=== PATIENT | female | born 1950 | race Caucasian/White ===

== ENCOUNTER 2022-02-15 19:26 | Emergency (ER) | payer MEDICARE, MEDICAID ==
[~2022-02-15] VITALS: Ht 170.2 cm; Wt 75.5 kg
[~2022-02-15 19:26] MED LIST: ASPI-1265 PO; ATOR40TA PO; INSU100V9 SQ; LISI40TA13 PO; LOP25T PO; TICA90TA2 PO
[2022-02-15 19:52] LABS: BASOPHILS % (AUTO) 0.3 % (0-1); EOSINOPHILS # (AUTO) 0.1 X10'3 (0-0.9); EOSINOPHILS % (AUTO) 1.5 % (0-6); HEMATOCRIT 35.3 % (35.0-45.0); HEMOGLOBIN 12.1 g/dl (12.0-16.0); LYMPHOCYTES # (AUTO) 2.1 X10'3 (1.1-4.8); LYMPHOCYTES % (AUTO) 31.4 % (21-51); MEAN CORPUSCULAR HEMOGLOBIN 30.2 PG (27.0-31.0); MEAN CORPUSCULAR HGB CONC 34.2 g/dL (33.0-36.5); MEAN CORPUSCULAR VOLUME 88.2 FL (78-98); MEAN PLATELET VOLUME 7.9 FL (7.4-10.4); MONOCYTES # (AUTO) 0.5 X10'3 (0-0.9); MONOCYTES % (AUTO) 7.6 % (2-12); NEUTROPHILS % (AUTO) 59.2 % (42-75); PLATELET COUNT 243 X10'3 (140-440); RED CELL DISTRIBUTION WIDTH 13.2 % (11.5-14.5); WHITE BLOOD COUNT 6.8 X10'3 (4.5-11.0)
[2022-02-15 20:04] LABS: ALANINE AMINOTRANSFERASE 43 U/L (12-78); ALBUMIN 2.8 G/DL (3.4-5.0); ALBUMIN/GLOBULIN RATIO 0.7 (1.1-1.5); ALKALINE PHOSPHATASE 167 IU/L (46-116); ANION GAP 7 (8-16); ASPARTATE AMINO TRANSFERASE 27 U/L (10-37); BILIRUBIN,TOTAL 0.4 MG/DL (0.1-1.0); BLOOD UREA NITROGEN 25 MG/DL (7-18); BUN/CREATININE RATIO 27.5 (6.6-38.0); CHLORIDE 104 MMOL/L (99-107); CREATININE 0.91 MG/DL (0.40-0.90); GLUCOSE 200 MG/DL (70-104); POTASSIUM 3.8 MMOL/L (3.5-5.1); SODIUM 136 MMOL/L (135-145); TOTAL CARBON DIOXIDE 24.6 MMOL/L (24-32); TOTAL PROTEIN 6.6 G/DL (6.4-8.2); eGFR 61 ML/MIN
[2022-02-16] MEDS ORDERED: furosemide 10 MG/1 ML 10ml inj IV ONE (04:55)
[2022-02-16 09:36] VITALS: BP 147/91
== END 2022-02-16 10:02 | disposition home or self-care (01) ==
LOC: ER 19:27
DX: R06.00 Dyspnea, unspecified (principal); I10 Essential (primary) hypertension; I11.9 Hypertensive heart disease without heart failure; E11.9 Type 2 diabetes mellitus without complications; Z79.899 Other long term (current) drug therapy; Z79.82 Long term (current) use of aspirin
CPT/HCPCS: 36415; 71045; 80053; 82948; 83880; 84484; 85025; 93005; 96374; 99285; J1940

== ENCOUNTER 2022-03-03 19:28 | Emergency (ER) | payer MEDICARE, MEDICAID ==
[~2022-03-03] VITALS: Ht 170.2 cm; Wt 75.0 kg
[~2022-03-03 19:28] MED LIST changes: -ASPI-1265 PO
[2022-03-03 23:36] LABS: BASOPHILS % (AUTO) 0.5 % (0-1); EOSINOPHILS # (AUTO) 0.1 X10'3 (0-0.9); EOSINOPHILS % (AUTO) 1.6 % (0-6); HEMATOCRIT 37.3 % (35.0-45.0); HEMOGLOBIN 12.5 g/dl (12.0-16.0); LYMPHOCYTES # (AUTO) 2.5 X10'3 (1.1-4.8); LYMPHOCYTES % (AUTO) 38.6 % (21-51); MEAN CORPUSCULAR HEMOGLOBIN 29.4 PG (27.0-31.0); MEAN CORPUSCULAR HGB CONC 33.4 g/dL (33.0-36.5); MEAN PLATELET VOLUME 8.5 FL (7.4-10.4); MONOCYTES # (AUTO) 0.4 X10'3 (0-0.9); MONOCYTES % (AUTO) 6.5 % (2-12); NEUTROPHILS # (AUTO) 3.5 X10'3 (1.8-7.7); NEUTROPHILS % (AUTO) 52.8 % (42-75); PLATELET COUNT 245 X10'3 (140-440); RED BLOOD COUNT 4.24 X10'6 (4.20-5.60); RED CELL DISTRIBUTION WIDTH 13.7 % (11.5-14.5); WHITE BLOOD COUNT 6.6 X10'3 (4.5-11.0)
[2022-03-03 23:49] LABS: ALANINE AMINOTRANSFERASE 36 U/L (12-78); ALBUMIN 3.1 G/DL (3.4-5.0); ALBUMIN/GLOBULIN RATIO 0.8 (1.1-1.5); ALKALINE PHOSPHATASE 133 IU/L (46-116); ANION GAP 8 (8-16); ASPARTATE AMINO TRANSFERASE 21 U/L (10-37); BILIRUBIN,TOTAL 0.4 MG/DL (0.1-1.0); BLOOD UREA NITROGEN 28 MG/DL (7-18); BUN/CREATININE RATIO 37.3 (6.6-38.0); CALCIUM 9.4 MG/DL (8.5-10.1); CHLORIDE 104 MMOL/L (99-107); CREATININE 0.75 MG/DL (0.40-0.90); GLUCOSE 99 MG/DL (70-104); POTASSIUM 3.2 MMOL/L (3.5-5.1); SODIUM 138 MMOL/L (135-145); TOTAL CARBON DIOXIDE 26.2 MMOL/L (24-32); eGFR 76 ML/MIN
[2022-03-04] MEDS ORDERED: furosemide 20MG tablet PO ONE (02:50)
[2022-03-04] MEDS ORDERED: POTASSIUM BICARB 20meq eff tab 20 MEQ TABLET.EFF PO SCH (02:50)
[2022-03-04] MEDS ORDERED: metoprolol tartrate 50mg tablet PO ONE (02:50)
[2022-03-04] MEDS ORDERED: FURO-150 PO ×2 (03:06→04:02)
[2022-03-04] MEDS ORDERED: POTA-84 PO ×2 (03:06→04:02)
[2022-03-04 03:35] VITALS: BP 186/95
--- NOTE | 2022-03-04 03:42 | NUR ---
pt refused c19 and flu swab. dr putnam made aware.
== END 2022-03-04 03:57 | disposition home or self-care (01) ==
LOC: ER 19:30
DX: R06.02 Shortness of breath (principal); R09.89 Other specified symptoms and signs involving the circulatory and respiratory systems; I25.10 Atherosclerotic heart disease of native coronary artery without angina pectoris; I10 Essential (primary) hypertension; I25.2 Old myocardial infarction; E11.9 Type 2 diabetes mellitus without complications; Z98.890 Other specified postprocedural states; Z60.2 Problems related to living alone; Z79.899 Other long term (current) drug therapy
CPT/HCPCS: 36415; 71045; 80053; 83880; 84145; 84484; 85025; 93005; 99285

== ENCOUNTER 2023-05-03 04:26 | Emergency (ER) | payer MEDICARE, MEDICAID ==
[~2023-05-03] VITALS: Ht 165.1 cm; Wt 90.9 kg
[~2023-05-03 04:26] MED LIST changes: +ASPI-1397 PO; -ATOR40TA PO; +FURO40TA4 PO; -LISI40TA13 PO; -LOP25T PO; +METO75TA PO; +POTA-188 PO; +SACU1TAB7 PO; +ZOLP10TA PO
[2023-05-03] MEDS: HYDROcodone/acetaminophen 5mg/325mg tablet PO ONE (05:15)
[2023-05-03 05:19] LABS: BASOPHILS % (AUTO) 0.4 % (0-1); EOSINOPHILS # (AUTO) 0.1 X10'3 (0-0.9); EOSINOPHILS % (AUTO) 1.6 % (0-6); HEMATOCRIT 38.6 % (35.0-45.0); LYMPHOCYTES # (AUTO) 1.8 X10'3 (1.1-4.8); LYMPHOCYTES % (AUTO) 26.4 % (21-51); MEAN CORPUSCULAR HEMOGLOBIN 29.7 PG (27.0-31.0); MEAN CORPUSCULAR HGB CONC 33.6 g/dL (33.0-36.5); MEAN CORPUSCULAR VOLUME 88.4 FL (78-98); MEAN PLATELET VOLUME 9.1 FL (7.4-10.4); MONOCYTES # (AUTO) 0.6 X10'3 (0-0.9); MONOCYTES % (AUTO) 8.5 % (2-12); NEUTROPHILS # (AUTO) 4.3 X10'3 (1.8-7.7); NEUTROPHILS % (AUTO) 63.1 % (42-75); PLATELET COUNT 179 X10'3 (140-440); RED BLOOD COUNT 4.36 X10'6 (4.20-5.60); RED CELL DISTRIBUTION WIDTH 13.2 % (11.5-14.5); WHITE BLOOD COUNT 6.8 X10'3 (4.5-11.0)
[2023-05-03 05:31] LABS: ALBUMIN 1.9 G/DL (3.4-5.0); ANION GAP 10 (8-16); BLOOD UREA NITROGEN 38 MG/DL (7-18); BUN/CREATININE RATIO 29.9 (10.0-20.0); CALCIUM 8.3 MG/DL (8.5-10.1); CHLORIDE 103 MMOL/L (99-107); CREATININE 1.27 MG/DL (0.40-0.90); GLUCOSE 366 MG/DL (70-104); POTASSIUM 3.8 MMOL/L (3.5-5.1); SODIUM 137 MMOL/L (135-145); TOTAL CARBON DIOXIDE 23.7 MMOL/L (24-32); eCRCL 36 ML/MIN; eGFR 41 ML/MIN
[2023-05-03] MEDS ORDERED: HYDR-3965 PO (05:58)
[2023-05-03 08:25] VITALS: BP 164/84; PULSE 64; RESP 14; TEMP 98.4; O2SAT 97
== END 2023-05-03 08:10 | disposition home or self-care (01) ==
LOC: ER 04:26
DX: R51.9 Headache, unspecified (principal); E86.0 Dehydration; I10 Essential (primary) hypertension; E11.9 Type 2 diabetes mellitus without complications; Z79.82 Long term (current) use of aspirin; Z79.84 Long term (current) use of oral hypoglycemic drugs; Z79.899 Other long term (current) drug therapy
CPT/HCPCS: 36415; 70450; 80048; 85025; 99284

== ENCOUNTER 2023-06-18 17:42 | Inpatient (IN) | payer MEDICARE, MEDICAID ==
[~2023-06-18] VITALS: Ht 165.1 cm; Wt 106.4 kg
[2023-06-18] MEDS: hydrALAZINE 20mg/ml inj. IV ONE ×2 (19:08→19:58)
[2023-06-18 19:19] LABS: BASOPHILS # (AUTO) 0.1 X10'3 (0-0.2); BASOPHILS % (AUTO) 0.7 % (0-1); EOSINOPHILS # (AUTO) 0.1 X10'3 (0-0.9); EOSINOPHILS % (AUTO) 1.2 % (0-6); HEMATOCRIT 42.7 % (35.0-45.0); HEMOGLOBIN 14.3 g/dl (12.0-16.0); LYMPHOCYTES # (AUTO) 2.4 X10'3 (1.1-4.8); LYMPHOCYTES % (AUTO) 31.4 % (21-51); MEAN CORPUSCULAR HEMOGLOBIN 29.8 PG (27.0-31.0); MEAN CORPUSCULAR HGB CONC 33.4 g/dL (33.0-36.5); MEAN CORPUSCULAR VOLUME 89.2 FL (78-98); MEAN PLATELET VOLUME 8.4 FL (7.4-10.4); MONOCYTES # (AUTO) 0.5 X10'3 (0-0.9); MONOCYTES % (AUTO) 6.1 % (2-12); NEUTROPHILS # (AUTO) 4.5 X10'3 (1.8-7.7); NEUTROPHILS % (AUTO) 60.6 % (42-75); PLATELET COUNT 244 X10'3 (140-440); RED BLOOD COUNT 4.79 X10'6 (4.20-5.60); RED CELL DISTRIBUTION WIDTH 14.1 % (11.5-14.5); WHITE BLOOD COUNT 7.5 X10'3 (4.5-11.0)
[2023-06-18] MEDS ORDERED: SEMA1PEN3 SUBCUT (19:23)
[2023-06-18 19:25] LABS: ALANINE AMINOTRANSFERASE 23 U/L (12-78); ALBUMIN 1.8 G/DL (3.4-5.0); ALBUMIN/GLOBULIN RATIO 0.4 (1.1-1.5); ALKALINE PHOSPHATASE 119 IU/L (46-116); ANION GAP 7 (8-16); ASPARTATE AMINO TRANSFERASE 23 U/L (10-37); BILIRUBIN,TOTAL 0.3 MG/DL (0.1-1.0); BLOOD UREA NITROGEN 29 MG/DL (7-18); BUN/CREATININE RATIO 27.1 (10.0-20.0); CALCIUM 8.8 MG/DL (8.5-10.1); CHLORIDE 106 MMOL/L (99-107); CREATININE 1.07 MG/DL (0.40-0.90); GLUCOSE 196 MG/DL (70-104); POTASSIUM 3.2 MMOL/L (3.5-5.1); SODIUM 141 MMOL/L (135-145); TOTAL CARBON DIOXIDE 27.7 MMOL/L (24-32); TOTAL PROTEIN 6.3 G/DL (6.4-8.2); eCRCL 43 ML/MIN; eGFR 50 ML/MIN
[2023-06-18] MEDS ORDERED: PREG50CA PO (19:26)
[2023-06-18] MEDS ORDERED: SUMA100T16 PO (19:26)
[2023-06-18 19:32] LABS: PRO BRAIN NATRIURETIC PEPTIDE 2051 PG/ML (0-125)
[2023-06-18] MEDS ORDERED: POTASSIUM BICARB 20meq eff tab 20 MEQ TABLET.EFF PO SCH (19:55)
[2023-06-18] MEDS: furosemide 10 MG/1 ML 10ml inj IV ONE (19:57)
[2023-06-18] MEDS: nitroGLYCERIN 1gm ointment UD TP ONE (19:58)
[2023-06-18] MEDS: aspirin 325mg tablet PO ONE (19:58)
[2023-06-18] MEDS: POTASSIUM BICARB 20meq eff tab 20 MEQ TABLET.EFF PO ONE (19:58)
[2023-06-18] MEDS ORDERED: ketorolac trometh. 30mg/ml inj. IV ONE (22:30)
[2023-06-18] MEDS: proCHLORperazine 10 MG/2 ml inj IV ONE (22:57)
[2023-06-18] MEDS: ketorolac tromethamine 15mg/ml inj. IV ONE (22:57)
[2023-06-18] MEDS: diphenhydrAMINE 50 mg/ml inj IV ONE (22:57)
[2023-06-19] VITALS (7 sets, daily range): BP systolic 129–161; BP diastolic 51–85; PULSE 65–98; RESP 12–22; TEMP 97.7–98.2; O2SAT 93–97
[2023-06-19] MEDS ORDERED: mag hydrox/Alum hydrox/simeth 30ml oral suspension PO PRN
[2023-06-19] MEDS ORDERED: magnesium Cl slow-release 64mg tablet PO PRN
[2023-06-19] MEDS ORDERED: potassium Cl 40MEQ/1/2NS 520ml 520 ML IV PRN
[2023-06-19] MEDS ORDERED: ondansetron/PF 4mg/2ml inj IV PRN
[2023-06-19] MEDS ORDERED: acetaminophen 325mg tablet PO PRN
[2023-06-19] MEDS ORDERED: magnesium hydroxide 30ml (MOM) UD suspension PO PRN
[2023-06-19] MEDS ORDERED: potassium Cl 20 mEq SR tablet PO PRN
[2023-06-19] MEDS ORDERED: magnesium 4gm in 100ml NS 100 ML IV PRN
[2023-06-19] MEDS ORDERED: magnesium 2GM in 50ml NS 50 ML IV PRN
[2023-06-19] MEDS ORDERED: hydrALAZINE 20mg/ml inj. IV SCH (02:00)
[2023-06-19] MEDS ORDERED: dextrose 50%-water 50ml dispensing syringe IV PRN ×2 (02:15)
[2023-06-19] MEDS ORDERED: DEXTROSE 15 GM of carb/4 tabs (each vial/BOTTLE has 4 tablets) PO PRN ×2 (02:15)
[2023-06-19] MEDS ORDERED: hydrALAZINE 20mg/ml inj. IV PRN (02:15)
[2023-06-19] MEDS ORDERED: glucagon, human recombinant 1mg kit SUBCUT PRN (02:15)
[2023-06-19] MEDS: K and/or MAG REPLACEMENT MC SCH (08:00)
[2023-06-19 08:36] LABS: BASOPHILS # (AUTO) 0.1 X10'3 (0-0.2); BASOPHILS % (AUTO) 0.7 % (0-1); EOSINOPHILS % (AUTO) 0.5 % (0-6); HEMATOCRIT 38.1 % (35.0-45.0); LYMPHOCYTES # (AUTO) 2.2 X10'3 (1.1-4.8); MEAN CORPUSCULAR HEMOGLOBIN 30.1 PG (27.0-31.0); MEAN CORPUSCULAR HGB CONC 34.2 g/dL (33.0-36.5); MEAN CORPUSCULAR VOLUME 87.9 FL (78-98); MEAN PLATELET VOLUME 8.6 FL (7.4-10.4); MONOCYTES # (AUTO) 0.5 X10'3 (0-0.9); MONOCYTES % (AUTO) 7.1 % (2-12); NEUTROPHILS # (AUTO) 4.1 X10'3 (1.8-7.7); NEUTROPHILS % (AUTO) 59.7 % (42-75); PLATELET COUNT 229 X10'3 (140-440); RED BLOOD COUNT 4.34 X10'6 (4.20-5.60); RED CELL DISTRIBUTION WIDTH 13.8 % (11.5-14.5); WHITE BLOOD COUNT 6.8 X10'3 (4.5-11.0)
[2023-06-19] MEDS: docusate sod 100mg capsule PO SCH (08:52)
[2023-06-19] MEDS: furosemide 10 MG/1 ML 10ml inj IV SCH (08:55)
[2023-06-19] MEDS: potassium chloride 10mEq ER tablet PO SCH (08:57)
[2023-06-19] MEDS: aspirin 81mg, enteric-coated 1 TAB TABLET.DR PO SCH (08:57)
[2023-06-19] MEDS: ticagrelor 90mg tablet PO SCH (08:57)
[2023-06-19] MEDS: metoprolol tartrate 25mg tablet PO SCH (08:57)
[2023-06-19] MEDS: heparin, porcine 5000 units/ml vial SQ SCH (08:58)
[2023-06-19] MEDS: spironolactone 25 MG tablet PO SCH (09:07)
[2023-06-19] MEDS: sacubitril/valsartan 49mg-51mg tablet PO SCH (09:08)
[2023-06-19 09:18] LABS: ALANINE AMINOTRANSFERASE 18 U/L (12-78); ALBUMIN 1.5 G/DL (3.4-5.0); ALBUMIN/GLOBULIN RATIO 0.4 (1.1-1.5); ALKALINE PHOSPHATASE 98 IU/L (46-116); ANION GAP 9 (8-16); ASPARTATE AMINO TRANSFERASE 20 U/L (10-37); BILIRUBIN,TOTAL 0.5 MG/DL (0.1-1.0); BLOOD UREA NITROGEN 29 MG/DL (7-18); BUN/CREATININE RATIO 26.6 (10.0-20.0); CALCIUM 8.2 MG/DL (8.5-10.1); CHLORIDE 106 MMOL/L (99-107); CHOL/HDL RATIO 3.2 (0.00-4.99); CHOLESTEROL 209 MG/DL (0-200); CREATININE 1.09 MG/DL (0.40-0.90); FREE T4 (FREE THYROXINE) 0.99 NG/DL (0.73-1.40); GLUCOSE 271 MG/DL (70-104); HDL CHOLESTEROL 65 MG/DL (35-60); LDL CHOLESTEROL 102 MG/DL (50-100); MAGNESIUM 1.6 MG/DL (1.5-2.4); PHOSPHORUS 4.3 MG/DL (2.3-4.5); POTASSIUM 3.3 MMOL/L (3.5-5.1); SODIUM 141 MMOL/L (135-145); THYROID STIMULATING HORMONE 3.85 ulU/ml (0.34-4.50); TOTAL CARBON DIOXIDE 25.6 MMOL/L (24-32); TOTAL PROTEIN 5.1 G/DL (6.4-8.2); TRIGLYCERIDES 127 MG/DL (20-135); eCRCL 42 ML/MIN; eGFR 49 ML/MIN
[2023-06-19] MEDS: pregabalin 25mg capsule PO SCH (09:18)
[2023-06-19 09:33] LABS: HEMOGLOBIN A1C > 12.0 % (4.5-6.2)
[2023-06-19] MEDS: potassium Cl 20 mEq SR tablet PO PRN (09:55)
[2023-06-19] MEDS: insulin Lispro (HumaLOG) vial - multi-dose SQ SCH (14:19)
[2023-06-19] MEDS: insulin glargine (Lantus) pen - multi-dose SQ SCH (21:41)
[2023-06-19] MEDS: apixaban 5mg tablet PO SCH (21:55)
[2023-06-19] MEDS: zolpidem 5mg tablet PO SCH (21:56)
[2023-06-20 02:00] VITALS: BP 145/73; PULSE 62; RESP 18; TEMP 97.3; O2SAT 96
[2023-06-20 06:00] VITALS: BP 182/77; PULSE 58; RESP 19; TEMP 98.3; O2SAT 97
[2023-06-20] MEDS: SUMAtriptan 25 MG tablet PO PRN (08:26)
[2023-06-20 08:35] LABS: BASOPHILS # (AUTO) 0.1 X10'3 (0-0.2); BASOPHILS % (AUTO) 0.8 % (0-1); EOSINOPHILS # (AUTO) 0.1 X10'3 (0-0.9); EOSINOPHILS % (AUTO) 1.9 % (0-6); HEMATOCRIT 37.9 % (35.0-45.0); HEMOGLOBIN 12.9 g/dl (12.0-16.0); LYMPHOCYTES # (AUTO) 2.9 X10'3 (1.1-4.8); LYMPHOCYTES % (AUTO) 40.8 % (21-51); MEAN CORPUSCULAR HEMOGLOBIN 30.2 PG (27.0-31.0); MEAN CORPUSCULAR VOLUME 88.8 FL (78-98); MEAN PLATELET VOLUME 8.4 FL (7.4-10.4); MONOCYTES # (AUTO) 0.5 X10'3 (0-0.9); NEUTROPHILS # (AUTO) 3.5 X10'3 (1.8-7.7); NEUTROPHILS % (AUTO) 49.5 % (42-75); PLATELET COUNT 227 X10'3 (140-440); RED BLOOD COUNT 4.27 X10'6 (4.20-5.60); WHITE BLOOD COUNT 7.1 X10'3 (4.5-11.0)
[2023-06-20 09:07] LABS: ALANINE AMINOTRANSFERASE 22 U/L (12-78); ALBUMIN 1.5 G/DL (3.4-5.0); ALBUMIN/GLOBULIN RATIO 0.4 (1.1-1.5); ALKALINE PHOSPHATASE 96 IU/L (46-116); ANION GAP 8 (8-16); ASPARTATE AMINO TRANSFERASE 26 U/L (10-37); BILIRUBIN,TOTAL 0.6 MG/DL (0.1-1.0); BLOOD UREA NITROGEN 32 MG/DL (7-18); BUN/CREATININE RATIO 24.4 (10.0-20.0); CALCIUM 8.1 MG/DL (8.5-10.1); CHLORIDE 106 MMOL/L (99-107); CREATININE 1.31 MG/DL (0.40-0.90); GLUCOSE 167 MG/DL (70-104); MAGNESIUM 1.7 MG/DL (1.5-2.4); PHOSPHORUS 3.6 MG/DL (2.3-4.5); POTASSIUM 3.6 MMOL/L (3.5-5.1); SODIUM 140 MMOL/L (135-145); TOTAL CARBON DIOXIDE 26.3 MMOL/L (24-32); TOTAL PROTEIN 5.5 G/DL (6.4-8.2); eCRCL 35 ML/MIN; eGFR 40 ML/MIN
[2023-06-20 11:00] VITALS: BP 162/68; PULSE 60; RESP 15; TEMP 97.9; O2SAT 95
[2023-06-20 15:00] VITALS: BP 127/83; PULSE 62; RESP 15; TEMP 97.6; O2SAT 94
[2023-06-20 18:00] VITALS: BP 132/81; PULSE 62; RESP 18; TEMP 97.9; O2SAT 95
[2023-06-20 22:00] VITALS: BP 145/62; PULSE 63; RESP 12; TEMP 97.7; O2SAT 97
[2023-06-21 02:00] VITALS: BP 162/75; PULSE 56; RESP 14; TEMP 97.6; O2SAT 94
[2023-06-21 07:41] LABS: BASOPHILS % (AUTO) 0.6 % (0-1); EOSINOPHILS # (AUTO) 0.2 X10'3 (0-0.9); EOSINOPHILS % (AUTO) 2.7 % (0-6); HEMATOCRIT 37.1 % (35.0-45.0); HEMOGLOBIN 12.6 g/dl (12.0-16.0); LYMPHOCYTES # (AUTO) 3.2 X10'3 (1.1-4.8); LYMPHOCYTES % (AUTO) 48.9 % (21-51); MEAN CORPUSCULAR HEMOGLOBIN 30.3 PG (27.0-31.0); MEAN CORPUSCULAR HGB CONC 34.1 g/dL (33.0-36.5); MEAN CORPUSCULAR VOLUME 88.7 FL (78-98); MEAN PLATELET VOLUME 8.7 FL (7.4-10.4); MONOCYTES # (AUTO) 0.5 X10'3 (0-0.9); MONOCYTES % (AUTO) 7.8 % (2-12); NEUTROPHILS # (AUTO) 2.6 X10'3 (1.8-7.7); PLATELET COUNT 225 X10'3 (140-440); RED BLOOD COUNT 4.18 X10'6 (4.20-5.60); RED CELL DISTRIBUTION WIDTH 13.9 % (11.5-14.5); WHITE BLOOD COUNT 6.5 X10'3 (4.5-11.0)
[2023-06-21 07:57] LABS: ALANINE AMINOTRANSFERASE 22 U/L (12-78); ALBUMIN 1.5 G/DL (3.4-5.0); ALBUMIN/GLOBULIN RATIO 0.4 (1.1-1.5); ALKALINE PHOSPHATASE 84 IU/L (46-116); ANION GAP 7 (8-16); ASPARTATE AMINO TRANSFERASE 23 U/L (10-37); BILIRUBIN,TOTAL 0.4 MG/DL (0.1-1.0); BLOOD UREA NITROGEN 39 MG/DL (7-18); BUN/CREATININE RATIO 28.1 (10.0-20.0); CALCIUM 8.2 MG/DL (8.5-10.1); CHLORIDE 106 MMOL/L (99-107); CREATININE 1.39 MG/DL (0.40-0.90); GLUCOSE 179 MG/DL (70-104); MAGNESIUM 1.9 MG/DL (1.5-2.4); PHOSPHORUS 4.4 MG/DL (2.3-4.5); POTASSIUM 3.8 MMOL/L (3.5-5.1); SODIUM 141 MMOL/L (135-145); TOTAL CARBON DIOXIDE 27.9 MMOL/L (24-32); TOTAL PROTEIN 5.2 G/DL (6.4-8.2); eCRCL 33 ML/MIN; eGFR 37 ML/MIN
[2023-06-21 08:50] LABS: ALBUMIN 1.7 G/DL (3.4-5.0); ANION GAP 8 (8-16); BLOOD UREA NITROGEN 39 MG/DL (7-18); BUN/CREATININE RATIO 28.7 (10.0-20.0); CALCIUM 8.6 MG/DL (8.5-10.1); CHLORIDE 105 MMOL/L (99-107); CREATININE 1.36 MG/DL (0.40-0.90); GLUCOSE 200 MG/DL (70-104); POTASSIUM 3.9 MMOL/L (3.5-5.1); SODIUM 141 MMOL/L (135-145); TOTAL CARBON DIOXIDE 28.1 MMOL/L (24-32); eCRCL 34 ML/MIN; eGFR 38 ML/MIN
[2023-06-21] MEDS ORDERED: FURO40TA4 PO (09:53)
[2023-06-21] MEDS ORDERED: SPIR25TA PO (09:53)
[2023-06-21] MEDS ORDERED: APIX5TAB3 PO (09:53)
[2023-06-21 10:59] VITALS: BP_SYST 112
== END 2023-06-21 14:13 | disposition home or self-care (01) | DRG 291 ==
LOC: ER 17:43 → ED HOLD 06-19 → EDBEDREQ 06-19 00:37 → PCU 3S 06-19 03:25
PROVIDERS: ADMIT Internal Medicine Critical Care Medicine; ATTEND Internal Medicine
DX: I11.0 Hypertensive heart disease with heart failure (principal); I50.33 Acute on chronic diastolic (congestive) heart failure; I16.1 Hypertensive emergency; N17.9 Acute kidney failure, unspecified; I48.0 Paroxysmal atrial fibrillation; I25.10 Atherosclerotic heart disease of native coronary artery without angina pectoris; Z60.2 Problems related to living alone; E78.5 Hyperlipidemia, unspecified; E11.65 Type 2 diabetes mellitus with hyperglycemia; E87.6 Hypokalemia; I49.3 Ventricular premature depolarization; I08.1 Rheumatic disorders of both mitral and tricuspid valves; Z79.82 Long term (current) use of aspirin; Z79.4 Long term (current) use of insulin; Z95.5 Presence of coronary angioplasty implant and graft; Z79.899 Other long term (current) drug therapy; Z87.891 Personal history of nicotine dependence; Z98.891 History of uterine scar from previous surgery; I25.2 Old myocardial infarction
CPT/HCPCS: 36415; 70450; 71045; 80048; 80053; 80061; 82948; 83036; 83735; 83880; 84100; 84439; 84443; 84484; 85025; 87081; 93005; 93306; 96374; 96375; 96376; 97116; 97161; 97530; 99285; G0378; J0360; J0780; J1200; J1644; J1815; J1885; J1940

== ENCOUNTER 2024-04-14 13:08 | Inpatient (IN) | payer MEDICARE, MEDICAID ==
[~2024-04-14] VITALS: Ht 165.1 cm; Wt 103.0 kg
[~2024-04-14 13:08] MED LIST changes: +APIX5TAB3 PO; -ASPI-1397 PO; +PREG50CA PO; +SEMA1PEN3 SUBCUT; +SPIR25TA PO; +SUMA100T16 PO
[2024-04-14 14:07] LABS: BASOPHILS # (AUTO) 0.1 X10'3 (0-0.2); BASOPHILS % (AUTO) 0.9 % (0-1); EOSINOPHILS % (AUTO) 0.3 % (0-6); HEMATOCRIT 40.3 % (35.0-45.0); HEMOGLOBIN 13.9 g/dl (12.0-16.0); LYMPHOCYTES # (AUTO) 1.6 X10'3 (1.1-4.8); MEAN CORPUSCULAR HGB CONC 34.5 g/dL (33.0-36.5); MEAN CORPUSCULAR VOLUME 89.7 FL (78-98); MEAN PLATELET VOLUME 8.9 FL (7.4-10.4); MONOCYTES # (AUTO) 0.6 X10'3 (0-0.9); MONOCYTES % (AUTO) 6.9 % (2-12); NEUTROPHILS % (AUTO) 74.9 % (42-75); PLATELET COUNT 267 X10'3 (140-440); RED CELL DISTRIBUTION WIDTH 13.6 % (11.5-14.5); WHITE BLOOD COUNT 9.3 X10'3 (4.5-11.0)
[2024-04-14 14:31] LABS: ALANINE AMINOTRANSFERASE 30 U/L (12-78); ALBUMIN 2.2 G/DL (3.4-5.0); ALBUMIN/GLOBULIN RATIO 0.6 (1.1-1.5); ALKALINE PHOSPHATASE 155 IU/L (46-116); ANION GAP 12 (8-16); ASPARTATE AMINO TRANSFERASE 27 U/L (10-37); BILIRUBIN,TOTAL 0.6 MG/DL (0.1-1.0); BLOOD UREA NITROGEN 36 MG/DL (7-18); BUN/CREATININE RATIO 21.2 (10.0-20.0); CHLORIDE 97 MMOL/L (99-107); ETHANOL < 10 MG/DL (<10); MAGNESIUM 1.5 MG/DL (1.5-2.4); PRO BRAIN NATRIURETIC PEPTIDE 2391 PG/ML (0-125); SODIUM 132 MMOL/L (135-145); TOTAL CARBON DIOXIDE 22.7 MMOL/L (24-32); TOTAL PROTEIN 5.9 G/DL (6.4-8.2); eCRCL 27 ML/MIN; eGFR 29 ML/MIN
[2024-04-14 14:35] LABS: BILIRUBIN,DIRECT 0.1 MG/DL (0-0.3); POTASSIUM 3.6 MMOL/L (3.5-5.1)
[2024-04-14 14:38] LABS: GLUCOSE 542 MG/DL (70-104)
[2024-04-14] MEDS ORDERED: potassium Cl 20 mEq SR tablet PO PRN (15:20)
[2024-04-14] MEDS ORDERED: magnesium sulf-water 4G/100mL 100 ML IV PRN (15:20)
[2024-04-14] MEDS ORDERED: magnesium sulf-water 2g/50mL 50 ML IV PRN ×2 (15:20→18:35)
[2024-04-14] MEDS ORDERED: mag hydrox/Alum hydrox/simeth 30ml oral suspension PO PRN (15:20)
[2024-04-14] MEDS ORDERED: magnesium hydroxide 30ml (MOM) UD suspension PO PRN (15:20)
[2024-04-14] MEDS ORDERED: magnesium Cl slow-release 64mg tablet PO PRN (15:20)
[2024-04-14 15:45] LABS: CREATINE KINASE 623 U/L (26-192)
[2024-04-14] MEDS: normal saline 1000ml 1,000 ML IV SCH ×2 (15:47→20:45)
[2024-04-14] MEDS: normal saline 1000ML IV soln IVB ONE (15:47)
[2024-04-14] MEDS: insulin regular, human 10 units/0.1 ml syringe IV ONE (15:49)
[2024-04-14 16:26] LABS: ABG BASE EXCESS -1.8 mmol/L (-2.0-3.0); ABG HCO3 21.5 mmol/L (21.0-28.0); ABG OXYGEN SATURATION 96.7 % (94.0-98.0); ABG PCO2 (T) 32.2 mmHg (32.0-45.0); ABG PH (T) 7.442 (7.350-7.450); ABG PO2 (T) 83.3 mmHg (83.0-108.0); ALLEN'S TEST POSITIVE; FCOHb 0.3 % (0.5-1.5); FHHb 3.3 % (0.0-5.0); FMetHb 0.1 % (0.0-1.5); FO2Hb 96.3 % (94.0-98.0); MODE ROOM AIR; PATIENT TEMPERATURE 36.8; TOTAL HEMOGLOBIN 13.6 G/dl (12.0-16.0)
[2024-04-14] MEDS ORDERED: potassium Cl 40MEQ/270ML bag 270 ML IV PRN (18:35)
[2024-04-14] MEDS ORDERED: potassium Cl 40MEQ/1/2NS 520ml 520 ML IV PRN (18:35)
[2024-04-14] MEDS ORDERED: dextrose 50%-water 50ml dispensing syringe IV PRN ×3 (18:35→20:10)
[2024-04-14] MEDS: normal saline 1000ml 1,000 ML IV STA (19:18)
[2024-04-14 19:23] LABS: ALBUMIN 1.9 G/DL (3.4-5.0); ANION GAP 9 (8-16); BLOOD UREA NITROGEN 35 MG/DL (7-18); BUN/CREATININE RATIO 26.3 (10.0-20.0); CHLORIDE 105 MMOL/L (99-107); CREATININE 1.33 MG/DL (0.40-0.90); GLUCOSE 297 MG/DL (70-104); SODIUM 138 MMOL/L (135-145); TOTAL CARBON DIOXIDE 23.6 MMOL/L (24-32); eCRCL 34 ML/MIN; eGFR 39 ML/MIN
[2024-04-14 19:29] LABS: POTASSIUM 2.9 MMOL/L (3.5-5.1)
[2024-04-14] MEDS ORDERED: Potassium Cl inj 20 MEQ in dextrose 5%-water 990 ML IV SCH (19:30)
[2024-04-14] MEDS ORDERED: Insulin Reg/NS 100units/100mL 100 ML IV SCH (19:30)
[2024-04-14] MEDS: K and/or MAG REPLACEMENT MC SCH (20:00)
[2024-04-14] MEDS: docusate sod 100mg capsule PO SCH (20:00)
[2024-04-14] MEDS ORDERED: DEXTROSE 15 GM of carb/4 tabs (each vial/BOTTLE has 4 tablets) PO PRN ×2 (20:10)
[2024-04-14] MEDS ORDERED: glucagon, human recombinant 1mg kit SUBCUT PRN (20:10)
[2024-04-14] MEDS: potassium Cl 40MEQ/1/2NS 520ml 520 ML IV PRN (20:33)
[2024-04-14] MEDS: diatr meglu/diatrizoate 30ml oral sol.-(3 dose) bottle PO SCH (21:26)
[2024-04-14] MEDS: heparin, porcine 5000 units/ml vial SQ SCH (21:27)
[2024-04-14] MEDS: INSULIN LISPRO 100 UNIT/ML INSULN.PEN MULTI-DOSE SQ SCH (22:45)
[2024-04-14 23:22] LABS: ALBUMIN 1.9 G/DL (3.4-5.0); ANION GAP 9 (8-16); BLOOD UREA NITROGEN 32 MG/DL (7-18); BUN/CREATININE RATIO 24.1 (10.0-20.0); CALCIUM 8.2 MG/DL (8.5-10.1); CHLORIDE 105 MMOL/L (99-107); CREATININE 1.33 MG/DL (0.40-0.90); GLUCOSE 268 MG/DL (70-104); SODIUM 136 MMOL/L (135-145); TOTAL CARBON DIOXIDE 22.3 MMOL/L (24-32); eCRCL 34 ML/MIN; eGFR 39 ML/MIN
[2024-04-14 23:50] LABS: POTASSIUM 2.9 MMOL/L (3.5-5.1)
[2024-04-15] MEDS: acetaminophen 325mg tablet PO PRN (00:35)
[2024-04-15 03:27] LABS: BASOPHILS % (AUTO) 0.6 % (0-1); EOSINOPHILS # (AUTO) 0.1 X10'3 (0-0.9); EOSINOPHILS % (AUTO) 1.7 % (0-6); HEMATOCRIT 37.8 % (35.0-45.0); HEMOGLOBIN 12.8 g/dl (12.0-16.0); LYMPHOCYTES # (AUTO) 2.4 X10'3 (1.1-4.8); LYMPHOCYTES % (AUTO) 34.5 % (21-51); MEAN CORPUSCULAR HGB CONC 33.8 g/dL (33.0-36.5); MEAN CORPUSCULAR VOLUME 88.8 FL (78-98); MEAN PLATELET VOLUME 8.3 FL (7.4-10.4); MONOCYTES # (AUTO) 0.5 X10'3 (0-0.9); MONOCYTES % (AUTO) 7.1 % (2-12); NEUTROPHILS % (AUTO) 56.1 % (42-75); PLATELET COUNT 229 X10'3 (140-440); RED BLOOD COUNT 4.26 X10'6 (4.20-5.60); RED CELL DISTRIBUTION WIDTH 13.5 % (11.5-14.5); WHITE BLOOD COUNT 7.1 X10'3 (4.5-11.0)
[2024-04-15 03:53] LABS: ALANINE AMINOTRANSFERASE 24 U/L (12-78); ALBUMIN 1.7 G/DL (3.4-5.0); ALBUMIN/GLOBULIN RATIO 0.5 (1.1-1.5); ALKALINE PHOSPHATASE 114 IU/L (46-116); ANION GAP 6 (8-16); ASPARTATE AMINO TRANSFERASE 23 U/L (10-37); BILIRUBIN,TOTAL 0.5 MG/DL (0.1-1.0); BLOOD UREA NITROGEN 31 MG/DL (7-18); BUN/CREATININE RATIO 23.5 (10.0-20.0); CALCIUM 8.3 MG/DL (8.5-10.1); CHLORIDE 107 MMOL/L (99-107); CHOL/HDL RATIO 3.2 (0.00-4.99); CHOLESTEROL 185 MG/DL (0-200); CREATININE 1.32 MG/DL (0.40-0.90); GLUCOSE 203 MG/DL (70-104); HDL CHOLESTEROL 58 MG/DL (35-60); LDL CHOLESTEROL 90 MG/DL (50-100); LIPASE 27 U/L (16-77); MAGNESIUM 1.6 MG/DL (1.5-2.4); POTASSIUM 3.2 MMOL/L (3.5-5.1); SODIUM 136 MMOL/L (135-145); TOTAL CARBON DIOXIDE 22.6 MMOL/L (24-32); TOTAL PROTEIN 4.9 G/DL (6.4-8.2); TRIGLYCERIDES 159 MG/DL (20-135); eCRCL 34 ML/MIN; eGFR 39 ML/MIN
[2024-04-15 04:33] LABS: HEMOGLOBIN A1C > 12.0 % (4.5-6.2)
[2024-04-15] MEDS ORDERED: insulin glargine (Lantus) pen - multi-dose SQ SCH (08:00)
[2024-04-15 08:10] LABS: ALBUMIN 1.8 G/DL (3.4-5.0); ANION GAP 9 (8-16); BLOOD UREA NITROGEN 29 MG/DL (7-18); BUN/CREATININE RATIO 22.3 (10.0-20.0); CALCIUM 8.2 MG/DL (8.5-10.1); CHLORIDE 106 MMOL/L (99-107); GLUCOSE 158 MG/DL (70-104); SODIUM 138 MMOL/L (135-145); TOTAL CARBON DIOXIDE 22.6 MMOL/L (24-32); eCRCL 35 ML/MIN; eGFR 40 ML/MIN
[2024-04-15 08:18] LABS: POTASSIUM 2.9 MMOL/L (3.5-5.1)
[2024-04-15] MEDS: atorvastatin 20mg tablet PO ONE (08:41)
[2024-04-15] MEDS: potassium Cl 20 mEq SR tablet PO PRN (08:42)
[2024-04-15] MEDS: metoprolol tartrate 25mg tablet PO ONE (10:42)
[2024-04-15] MEDS: losartan 25mg tablet PO ONE (12:19)
[2024-04-15 18:00] VITALS: BP 174/83; PULSE 72; RESP 19; TEMP 97.6; O2SAT 97
[2024-04-15 20:00] VITALS: RESP 19; O2SAT 97
[2024-04-15 22:00] VITALS: BP 212/87; PULSE 72; RESP 32; TEMP 96.7; O2SAT 95
[2024-04-15] MEDS: metoprolol tartrate 25mg tablet PO SCH (22:31)
[2024-04-15] MEDS: insulin glargine (Lantus) pen - multi-dose SQ SCH (22:40)
[2024-04-16] VITALS (8 sets, daily range): BP systolic 115–189; BP diastolic 46–84; PULSE 56–88; RESP 13–26; TEMP 97.1–97.8; O2SAT 94–96
[2024-04-16] MEDS: labetalol 20mg/4ml (5mg/ml) syringe IV ONE (00:21)
[2024-04-16] MEDS: hydrALAZINE 20mg/ml inj. IV PRN ×2 (04:18→11:54)
[2024-04-16 05:14] LABS: BASOPHILS % (AUTO) 0.7 % (0-1); EOSINOPHILS # (AUTO) 0.1 X10'3 (0-0.9); EOSINOPHILS % (AUTO) 2.1 % (0-6); HEMATOCRIT 36.6 % (35.0-45.0); HEMOGLOBIN 12.5 g/dl (12.0-16.0); LYMPHOCYTES # (AUTO) 2.2 X10'3 (1.1-4.8); LYMPHOCYTES % (AUTO) 32.6 % (21-51); MEAN CORPUSCULAR HEMOGLOBIN 30.9 PG (27.0-31.0); MEAN CORPUSCULAR HGB CONC 34.2 g/dL (33.0-36.5); MEAN CORPUSCULAR VOLUME 90.3 FL (78-98); MEAN PLATELET VOLUME 8.7 FL (7.4-10.4); MONOCYTES # (AUTO) 0.6 X10'3 (0-0.9); MONOCYTES % (AUTO) 8.8 % (2-12); NEUTROPHILS # (AUTO) 3.7 X10'3 (1.8-7.7); NEUTROPHILS % (AUTO) 55.8 % (42-75); PLATELET COUNT 216 X10'3 (140-440); RED BLOOD COUNT 4.05 X10'6 (4.20-5.60); RED CELL DISTRIBUTION WIDTH 13.8 % (11.5-14.5); WHITE BLOOD COUNT 6.7 X10'3 (4.5-11.0)
[2024-04-16 05:37] LABS: ALANINE AMINOTRANSFERASE 25 U/L (12-78); ALBUMIN 1.5 G/DL (3.4-5.0); ALBUMIN/GLOBULIN RATIO 0.4 (1.1-1.5); ALKALINE PHOSPHATASE 112 IU/L (46-116); ANION GAP 7 (8-16); ASPARTATE AMINO TRANSFERASE 25 U/L (10-37); BILIRUBIN,TOTAL 0.5 MG/DL (0.1-1.0); BLOOD UREA NITROGEN 31 MG/DL (7-18); BUN/CREATININE RATIO 20.8 (10.0-20.0); CALCIUM 7.8 MG/DL (8.5-10.1); CHLORIDE 107 MMOL/L (99-107); CREATININE 1.49 MG/DL (0.40-0.90); GLUCOSE 269 MG/DL (70-104); MAGNESIUM 2.5 MG/DL (1.5-2.4); POTASSIUM 4.3 MMOL/L (3.5-5.1); SODIUM 136 MMOL/L (135-145); TOTAL CARBON DIOXIDE 21.8 MMOL/L (24-32); eCRCL 30 ML/MIN; eGFR 34 ML/MIN
[2024-04-16] MEDS: losartan 50mg tablet PO SCH (09:36)
[2024-04-16] MEDS ORDERED: glucagon, human recombinant 1mg kit SUBCUT PRN (13:20)
[2024-04-16] MEDS ORDERED: hydrALAZINE 20mg/ml inj. IV PRN (14:30)
[2024-04-16] MEDS: amLODIPine 5mg tablet PO ONE (16:25)
[2024-04-16] MEDS: ondansetron/PF 4mg/2ml inj IV PRN (16:25)
[2024-04-16] MEDS: INSULIN LISPRO 100 UNIT/ML INSULN.PEN MULTI-DOSE SQ SCH ×2 (18:00→18:09)
[2024-04-16] MEDS ORDERED: GABA-530 PO (19:32)
[2024-04-16] MEDS ORDERED: insulin glargine (Lantus) pen - multi-dose SQ SCH (21:00)
[2024-04-16] MEDS: atorvastatin 20mg tablet PO SCH (21:24)
[2024-04-16] MEDS: insulin glargine (Lantus) pen - multi-dose SQ SCH (21:41)
[2024-04-17] VITALS (7 sets, daily range): BP systolic 121–170; BP diastolic 56–82; PULSE 59–75; RESP 14–27; TEMP 97.4–98; O2SAT 94–95
[2024-04-17] MEDS: acetaminophen 325mg tablet PO PRN (01:40)
[2024-04-17 06:54] LABS: BASOPHILS % (AUTO) 0.6 % (0-1); EOSINOPHILS # (AUTO) 0.1 X10'3 (0-0.9); HEMATOCRIT 39.2 % (35.0-45.0); HEMOGLOBIN 13.1 g/dl (12.0-16.0); LYMPHOCYTES # (AUTO) 2.4 X10'3 (1.1-4.8); LYMPHOCYTES % (AUTO) 34.1 % (21-51); MEAN CORPUSCULAR HEMOGLOBIN 30.4 PG (27.0-31.0); MEAN CORPUSCULAR HGB CONC 33.4 g/dL (33.0-36.5); MONOCYTES # (AUTO) 0.6 X10'3 (0-0.9); MONOCYTES % (AUTO) 8.8 % (2-12); NEUTROPHILS # (AUTO) 3.8 X10'3 (1.8-7.7); NEUTROPHILS % (AUTO) 54.5 % (42-75); PLATELET COUNT 230 X10'3 (140-440)
[2024-04-17 07:15] LABS: ALANINE AMINOTRANSFERASE 26 U/L (12-78); ALBUMIN 1.8 G/DL (3.4-5.0); ALBUMIN/GLOBULIN RATIO 0.5 (1.1-1.5); ALKALINE PHOSPHATASE 125 IU/L (46-116); ANION GAP 10 (8-16); ASPARTATE AMINO TRANSFERASE 22 U/L (10-37); BILIRUBIN,TOTAL 0.6 MG/DL (0.1-1.0); BLOOD UREA NITROGEN 31 MG/DL (7-18); BUN/CREATININE RATIO 21.5 (10.0-20.0); CHLORIDE 106 MMOL/L (99-107); CREATININE 1.44 MG/DL (0.40-0.90); GLUCOSE 280 MG/DL (70-104); MAGNESIUM 1.5 MG/DL (1.5-2.4); POTASSIUM 4.1 MMOL/L (3.5-5.1); SODIUM 136 MMOL/L (135-145); TOTAL PROTEIN 5.5 G/DL (6.4-8.2); eCRCL 31 ML/MIN; eGFR 36 ML/MIN
[2024-04-17] MEDS: amLODIPine 5mg tablet PO SCH (08:18)
[2024-04-17] MEDS ORDERED: FURO-150 PO (11:25)
[2024-04-17] MEDS ORDERED: LANTUS SQ (11:25)
[2024-04-17] MEDS ORDERED: NOR5T PO (11:25)
[2024-04-17] MEDS ORDERED: INSU100I8 SQ (11:25)
[2024-04-17] MEDS ORDERED: APIX5TAB3 PO (11:34)
[2024-04-17] MEDS ORDERED: HYDR50TA46 PO (11:36)
[2024-04-17] MEDS: hyDRALAzine 10mg tablet PO ONE ×2 (11:40→15:02)
[2024-04-17] MEDS: hydrALAZINE 20mg/ml inj. IV ONE (16:38)
[2024-04-17] MEDS ORDERED: hyDRALAzine 10mg tablet PO SCH (20:00)
[2024-04-17] MEDS ORDERED: insulin glargine (Lantus) pen - multi-dose SQ SCH (21:00)
== END 2024-04-17 16:57 | DRG 280 ==
LOC: ER 13:09 → ED HOLD 15:24 → PCU 3S 04-15 18:16
PROVIDERS: ADMIT Nurse Practitioner Family; ATTEND Nurse Practitioner Family
DX: I16.1 Hypertensive emergency (principal); E11.00 Type 2 diabetes mellitus with hyperosmolarity without nonketotic hyperglycemic-hyperosmolar coma (NKHHC); I21.A1 Myocardial infarction type 2; N17.0 Acute kidney failure with tubular necrosis; I50.32 Chronic diastolic (congestive) heart failure; E87.1 Hypo-osmolality and hyponatremia; I13.0 Hypertensive heart and chronic kidney disease with heart failure and stage 1 through stage 4 chronic kidney disease, or unspecified chronic kidney disease; E11.22 Type 2 diabetes mellitus with diabetic chronic kidney disease; E86.0 Dehydration; N18.30 Chronic kidney disease, stage 3 unspecified; E87.6 Hypokalemia; K52.9 Noninfective gastroenteritis and colitis, unspecified; I25.10 Atherosclerotic heart disease of native coronary artery without angina pectoris; I25.2 Old myocardial infarction; Z79.01 Long term (current) use of anticoagulants; Z79.4 Long term (current) use of insulin; Z79.899 Other long term (current) drug therapy
CPT/HCPCS: 36415; 36600; 70450; 71045; 74176; 80048; 80053; 80061; 80076; 80320; 82010; 82550; 82803; 82948; 83036; 83605; 83690; 83735; 83880; 84145; 84484; 85018; 85025; 85651; 87081; 93005; 93306; 97161; 97530; 99285; G0378; J0360; J1644; J1815; J2405; J3480; J3490; J7030; Q9963